=== PATIENT | male | born 1985 | race Caucasian/White ===

== ENCOUNTER 2019-01-03 12:17 | Emergency (ER) | payer MEDICAID, SELFPAY ==
[2019-01-03 12:18] VITALS: BP 138/85; PULSE 114; RESP 17; TEMP 35.6; O2SAT 95; BMI 41.3
--- NOTE | 2019-01-03 12:51 | ED.DCSUM_ITS ---
- ER Visit Summary Date of Service: 01/03/19 Chief Complaint: Hemorrhoidal rectal pain History of Present Illness: The patient is a 33 M known history of prior hemorrhoids. Complaining of pain last 2 days. No bleeding. No fever. Has had prior hemorrhoids drained. Physical Examination: Well-appearing young male. Vital signs are stable afebrile. No distress. HEENT exam unremarkable. Lungs clear to auscultation. Heart regular rhythm no murmur. Abdomen is soft and nontender. Remedies moves all 4. Rectal exam he is too large and one smaller inflamed tender hemorrhoids. Currently there is no bleeding. These will need to be incised and drained. That is what the patient is requesting. I also already instructed him will need to have this followed up and have a formal hemorrhoidectomy. Test Results: Discharge Emergency Department Course and Treatment: Local anesthetic to the hemorrhoid with lidocaine. Incision was made they were drained. Patient tolerated very well. I was able to remove clots from the hemorrhoids. Instructed on warm soaks. Hemorrhoidal cream. Follow-up with general surgery for discussion of formal hemorrhoidectomy. Warm soaks. Treatment Plan: Warm soaks. Hemorrhoid cream. Follow up with general surgery. Disposition: Discharge Impression: Acute rectal pain secondary to inflamed hemorrhoids Incision and drainage by ER of 3 hemorrhoids. This note was generated with [employer] dictation software. It may contain incorrect words, spelling, and punctuation that were not noted in review of the chart prior to signing ED Disposition - Plan for ED Patient: Disposition: Home or Assisted Living Instructions: Thrombosed Hemorrhoids Referrals: Karl Nur MD [STAFF PHYSICIAN] - As soon as possible Timbo Syed MD [STAFF PHYSICIAN] - As soon as possible Additional Instructions: Follow-up with either 1 of the general surgeons that I listed to see which one can get her in and resect and remove these hemorrhoids. Warm soaks. Tylenol Motrin for pain. Hemorrhoid cream.
== END 2019-01-03 14:06 | disposition home or self-care (01) ==
PROVIDERS: Emergency Provider Emergency Medicine; Family Provider Internal Medicine; PCP Internal Medicine
DX: K64.5 Perianal venous thrombosis (principal)
CPT/HCPCS: 46083 ×3; 99283

== ENCOUNTER 2019-01-06 08:02 | Day surgery (SDC) | payer MEDICAID, SELFPAY ==
[2019-01-05 13:49] VITALS: BMI 41.3
--- NOTE | 2019-01-05 14:30 | PCM.HP.BLA ---
Problem List (1) Thrombosed external hemorrhoid Status: Acute History and Physical Date of Admission: 01/05/19 Intake Vital Signs 01/05/19 Body Mass Index (BMI) 41.3 01/05/19 Height 5 ft 7 in 01/05/19 Weight: 283 lb 01/05/19 Body Mass Index (BMI) 44.3 01/05/19 Blood Pressure 127/78 H 01/05/19 Blood Pressure Location Rt brachial 01/05/19 Respiratory Rate 18 01/05/19 Pulse Rate 92 01/05/19 Pulse Source Monitor 01/05/19 Temperature 98.3 F 01/05/19 Temperature Source Oral 01/05/19 Pulse Ox 94 01/05/19 Oxygen Delivery Method room air Intake Visit Reasons: [facility] ER 01/03 FU 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 Is patient in pain?: No Allergies Penicillins Allergy (Verified 01/05/19 13:49) Anaphylaxis Medications Hydrocodone/Acetaminophen [[place] 5-325 Tablet] 1 ea PO 4X/DAY PRN PRN #10 tab 01/03/19 [Rx Confirmed 01/05/19] PFSH Medical History Hemorrhoids (Acute) Surgical History (Updated 01/05/19 @ 13:43 by Ginger Vila) No history of previous surgery (Acute) Family History (Updated 01/05/19 @ 13:47 by Ginger Vila) Mother Arthritis Colon cancer Diabetes Hypertension Hypercholesterolemia Father Diabetes Hypertension Hypercholesterolemia Brother Diabetes Hypercholesterolemia Hypertension Social History (Updated 01/05/19 @ 14:05 by Karl Nur MD) Smoking Status: Never smoker alcohol intake: never substance use type: does not use HPI HPI HPI: AMI HERNANDEZ is a 33 M who presents to the office today for HPI HPI Surgical H&P: Yes HPI: AMI HERNANDEZ is a 33 M who presents to the office today for hemorrhoids. Patient had thrombosed hemorrhoids which were evacuated 2 days ago. This was done in the emergency room. Patient reports that he feels like the hemorrhoids have come back. They are not painful but they are very large. ROS General General: No weight change, appetite, fatigue, colon cancer, breast cancer or weakness HEENT HEENT: No difficulty swallowing, eye injury, eye surgery, swollen glands or hoarseness Endo Endocrine: No thyroid disease, diabetes mellitus, thyroid cancer, Hair loss, heat intolerance or cold intolerance Skin Skin: No rash or changing moles Breast Breast: No left breast lump, right breast lump, nipple discharge, breast pain, abnormal mammogram, abnormal US or breast enlargement Musc Musculoskeletal: No back problems, arthritis, rheumatoid arthritis, gout or joint pain Cardio Cardiovascular: No murmur, pacemaker, heart disease, atrial fibrillation, high blood pressure, heart attack, heart stent, palpitations, shortness of breat with exertion or chest pain Psych Psychiatric: No depression, anxiety or hearing voices Resp Respiratory: No shortness of breath, No sleep apnea, No cough, No COPD, No asthma, No emphysema, No wheezing Gastro Gastrointestinal: No abdominal pain, No nausea or vomiting, No diarrhea, No constipation, No blood in stool, No acid reflux, Yes hemorrhoids, No ulcers, No gallbladder problem, No black,tarry stools Attila Hematologic: No blood thinners, No blood disorders, No bleeding, No anemia, No blood clots Neuro Neurologic: No system reviewed and no additional complaints, except as docu, No as per HPI, No abnormal walking, No abnormal hearing, No abnormal movements, No abnormal speech, No behavioral changes, No burning sensations, No confusion, No seizure-like activity, No unsteadiness, No dizziness, No localized weakness, No frequent falls, No headache(s), No lack of coordination, No loss of vision, No memory loss, No numbness, No other visual disturbances, No radiating pain, No restless legs, No sensory deficit, No fainting, No tingling, No tremor(s), No weakness, No other Exam Const General: cooperative Orientation: alert, oriented x3 Limitations: behavioral limitations Chest Breast Palpation: No nipple discharge Resp Effort & Inspection: normal respiratory effort Auscultation: clear to auscultation bilaterally Cardio Rate: regular rate Rhythm: regular rhythm Heart Sounds: no murmurs GI Inspection: non-distended Palpation: soft, nontender Other: Patient has 2 large thrombosed hemorrhoids on rectal exam Assessment & Plan Problems 1. Thrombosed hemorrhoids K64.5 Plan Patient has 2 large external thrombosed hemorrhoids. Patient had these evacuated and they came back. At this point I believe evacuated and then once more we will just result in the same outcome. I recommend going to the operating room tomorrow and surgically excising these hemorrhoids. I explained this to the patient and his father. I explained the risks of bleeding, infection, injury to the anal canal. I recommended a fleets enema in the morning and n.p.o. after midnight. I also recommended sitz baths and stool softeners after. She understands the risks as well to proceed with surgery. I will bring him to the OR tomorrow for excision of these thrombosed external hemorrhoids. Karl Nur MD Pager: [facility] [address] [place] [address], [address] [place] [address] Office:
[2019-01-06] VITALS (11 sets, daily range): BP systolic 99–136; BP diastolic 47–90; PULSE 80–98; RESP 18–20; TEMP 36.6–37.3; O2SAT 92–98; BMI 41.8
[2019-01-06] MEDS: Bupivacaine Mpf 0.5% 30 ML VIAL (10:55)
--- NOTE | 2019-01-06 11:36 | PCM.DC.REC ---
Discharge Diet: No Restrictions Discharge Activity: Return to Normal Activity, May Not Drive - while you are taking narcotic pain medications. Do not drive, work with heavy equipment or sign legal documents for 24 hours after your surgery. Additional Activity Instructions:: Be aware that pain medications may cause nausea. You should typically eat light foods as you take your pain medications. Pain medications may also cause constipation, if you have difficulty with this please discuss with your doctor. Call your doctor if your incision/area has: Continuous Slow Oozing, Sudden Increased Bleeding, Increased Pain/ Swelling, Increased Redness, Foul Smelling Discharge, Swelling at the incision site Call your doctor if you observe: Fever of 101 or Higher Additional Dressing/Incision Instructions:: Place dibucaine ointment on the perianal area as needed. Sitz baths twice daily and after bowel movements. Allergies/Adverse Reactions: Allergies Penicillins Allergy (Verified 01/05/19 13:49) Anaphylaxis Medications to take at Discharge Hydrocodone/Acetaminophen [[place] 5-325 Tablet] 1 ea PO 4X/DAY PRN PRN #10 tab 01/03/19 Oxycodone HCl/Acetaminophen [Percocet 5/325] 1 - 2 tablet PO Q4H PRN PRN 7 Days #30 tablet 01/06/19 The following prescriptions were given: Oxycodone HCl/Acetaminophen [Percocet 5/325] 1 - 2 tablet PO Q4H PRN PRN 7 Days #30 tablet PRN Reason: Pain Transmission Status: Sent to [facility] Primary Care Physician: Micaela Sanches MD [Primary Care Provider] - Test Results: Test results from this visit will be discussed in further detail at your follow-up appointment, if applicable. Please Follow Up With: Karl Nur MD When: Please call to schedule 2 week follow up appointment. [phone]
--- NOTE | 2019-01-06 11:40 | PCM.OPRPT ---
Problem List (1) Thrombosed external hemorrhoid Status: Acute Report of Operation Date of Procedure: 01/06/19 Pre-Operative Diagnosis: Thrombosed external hemorrhoids Post-Operative Diagnosis: Same Surgery/Procedure Performed:: Evacuation and packing of external hemorrhoids Description of Procedure: Patient was brought to the operating room and general anesthesia was induced. The pain she was then placed in prone jackknife position. Upon inspection the patient had circumferential thrombosing of the anus. The entire anal canal was completely covered with several thrombosed hemorrhoids. I was unable to excise these as this would best circumferential excision and high risk of stenosis. Instead both of these large external hemorrhoids were opened with electrocautery and packed with half-inch iodoform gauze. Dressing was then applied. - Admit VTE Documentation VTE Mechan Device Prophylaxis: SCD's
== END 2019-01-06 14:03 | disposition home or self-care (01) ==
LOC: SDC 08:03 → AC 08:04
PROVIDERS: Family Provider Internal Medicine; PCP Internal Medicine; Referring Provider Surgery; Visit Provider Surgery
PROC: (CPT 46083; principal; 2019-01-06 09:45)
DX: K64.5 Perianal venous thrombosis (principal); Z79.891 Long term (current) use of opiate analgesic
CPT/HCPCS: 00902; 46083 ×2; J7120; J2405

== ENCOUNTER 2019-06-12 17:03 | Emergency (ER) | payer MEDICAID, SELFPAY ==
[2019-01-06 08:37] VITALS: BMI 41.8
[2019-06-12 17:04] VITALS: BP 134/103; PULSE 127; RESP 18; TEMP 36; O2SAT 96; BMI 38.1
--- NOTE | 2019-06-12 17:17 | ED.VIS.GEN ---
History of Present Illness Chief Complaint: Male Pain/Injury Onset: Month(s) - 12 Narrative: Patient presents with some dysuria, he has some vague testicle tenderness bilaterally. This is been ongoing for a year. He denies any abdominal pain any back pain any fever or chills. He denies any kind of discharge. He tells me his testicular pain is currently mild but sometimes it is enough to keep him up at night. He tells me he does get it most days sometimes up to 4 hours a day. Past Medical History - Allergies and Home Meds Allergies/Adverse Reactions: Allergies Penicillins Allergy (Verified 06/12/19 17:03) Anaphylaxis Primary Care Physician: Micaela Sanches MD [Primary Care Provider] - 3-5 Days Past Medical History: None Smoking Status: Never smoker Review of Systems General: Denies: Fever Cardiovascular: Denies: Chest pain Respiratory: Denies: Dyspnea Gastrointestinal: Denies: Abdominal pain Genitourinary: Reports: Dysuria, - - Testicle pain is in HPI Musculoskeletal: Denies: Back pain Skin: Denies: Rash Neurological: Denies: Weakness Hematologic: Denies: Easy bruising Physical Exam Vital Signs/Narrative: Vital Signs Temp Pulse Resp BP Pulse Ox 06/12/19 17:04 96.8 F L 127 H 18 134/103 H 96 General: Well nourished, Well developed Cardiovascular: Regular rate, Regular rhythm Respiratory: No distress, CTA bilaterally Abdomen: Soft, Nontender : - - Patient has a normal testicular exam. Normal testicular lie. He does have bilateral cremasteric reflex. There is minimal tenderness to palpation. There is no erythema or Callard or swelling. Penis is circumcised. It is normal. There is no discharge or tenderness. Back: Nontender. Negative for: CVA tenderness Extremities: Nontender, No edema Skin: Normal color Psychological: Normal affect, Normal Mood Diagnostic/Tx/Re-eval - Medical Decision Making Patient is found to have glucosuria on further examination he does have quite a bit of frequency, I wonder if this is the reason for his symptoms, his blood sugar was elevated on blood work.7 he has not been diagnosed with diabetes before, I will start him on metformin he is to follow-up with PCP, because of the testicular tenderness I will also refer him to . Discharge stable condition ED Disposition - Plan for ED Patient: Disposition: Home or Assisted Living Diagnosis: Diabetes, Testicle pain Instructions: TESTICULAR PAIN, Unclear Cause, Eating Out When You Have Diabetes, What Is Type 2 Diabetes? Prescriptions: metFORMIN (XR) [Glucophage Xr] 500 mg PO DAILY #30 tab Prescription Printed Referrals: Micaela Sanches MD [Primary Care Provider] - 3-5 Days Jeyson Sapp MD [STAFF PHYSICIAN] - 3-5 Days
[2019-06-12 18:25] LABS: Bacteria 0 SEEN /hpf (None Seen); Mucous, Urine 0 SEEN /hpf (<or=2+); Red Blood Cells-Urine 0 SEEN /hpf (0-5); Squamous Epithelial Cells - UA 0 SEEN /hpf (0-5); White Blood Cells 0 SEEN /hpf (0-5)
[2019-06-12 18:27] LABS: Color, Urine Yellow (Yellow); Glucose, Dipstick 1000 mg/dl (Normal); Ketone-Dipstick 5 mg/dl (Negative); Leukocyte Esterase-Dipstick Negative /ul (Negative); Nitrite-Dipstick Negative (Negative); Occult Blood-Urine Negative /ul (Negative); Protein-Dipstick Negative (Negative); Urine Bilirubin Dipstick Negative (Negative); Urine Clarity Clear (Clear); Urine Urobilinogen Normal (Normal)
[2019-06-12 19:11] LABS: Absolute Lymphocyte Count 1.46 X10^3/uL (0.83-4.51); Absolute Neutrophil Count 3.9 X10^3/uL (2.0-7.7); Basophil# 0.02 X10^3/uL; Basophil% 0.3 % (0-1); Eosinophil# 0.07 X10^3/uL; Eosinophils% 1.2 % (0-5); Hematocrit 42.7 % (40-54); Hemoglobin 14.6 g/dL (13.0-16.5); Lymphocyte # 1.46 X10^3/ul (4.0); Lymphocyte % 24.3 % (19-41); Mean Corp Hgb Conc 34.2 g/dL (32-36); Mean Corpuscular Hgb 28.7 pg (27.0-32.0); Mean Corpuscular Volume 83.9 fL (80-94); Mean Platelet Vol. 9.7 fl (6.2-12.0); Monocyte# 0.51 X10^3/uL; Monocyte% 8.5 % (0-10); NRBC Flagged by Analyzer 0 % (0-5); Neutrophil # 3.91 X10^3/uL (2.7-7.7); Neutrophil % 65.2 % (47-70); Platelet Count 264 K/mm3 (150-450); RBC Distribution Width CV 12.7 % (11.6-14.6); RBC Distribution Width SD 38.5 fl (35.1-43.9); Red Blood Count 5.09 M/mm3 (4.6-6.2)
[2019-06-12 19:26] LABS: ALB/GLOB Ratio 1.2 RATIO (0.9-2.4); AST(SGOT) 14 U/L (15-37); Alanine Aminotransfer ALT/SGPT 31 U/L (16-61); Alkaline Phosphatase 57 U/L (45-117); Anion Gap 10 (5-15); BUN 14 mg/dL (7-18); BUN/Creat Ratio 15.1 RATIO (10-20); Chloride 105 mmol/L (98-107); Creatinine, Serum 0.93 mg/dL (0.70-1.30); EST Glomerular Filtration Rate 99 mL/min (>60); Est Glom Filt Rate - Afr Amer 119 mL/min (>60); Estimated Creatinine Clearance 111.92 ml/min; Globulin 3.2 g/dL (2.2-4.2); Glucose 286 mg/dL (74-106); Potassium 3.9 mmol/L (3.5-5.1); Protein, Total 7.2 g/dL (6.4-8.2); Sodium Level 137 mmol/L (136-145)
[2019-06-12 20:01] VITALS: BP 134/75; PULSE 94; RESP 18; O2SAT 96
[2019-06-12 20:05] VITALS: BP 134/75; PULSE 94; RESP 16; O2SAT 96
== END 2019-06-12 20:06 | disposition home or self-care (01) ==
PROVIDERS: Emergency Provider Emergency Medicine; Family Provider Internal Medicine; PCP Internal Medicine
DX: N50.819 Testicular pain, unspecified (principal); E11.9 Type 2 diabetes mellitus without complications; Z79.84 Long term (current) use of oral hypoglycemic drugs
CPT/HCPCS: 36415; 80053; 81001; 85025; 87086; 99282

== ENCOUNTER 2020-05-05 04:36 | Emergency (ER) | payer MEDICAID, SELFPAY ==
[2020-05-05 04:37] VITALS: BP 154/100; PULSE 89; RESP 18; TEMP 36.2; O2SAT 99; BMI 39.7
--- NOTE | 2020-05-05 04:53 | ED.VIS.DENTA ---
History of Present Illness Chief Complaint: Dental Informant: Patient, Family Onset: Yesterday Context: Gradual Onset Timing: Continuous Quality: sore/ache Location: right upper molar Current Severity: Moderate Maximum Severity: Moderate Worsened by: eating/drinking Relieved by: - - hasn't tried anything Associated Symptoms: - - None. No fevers, jaw swelling, vomiting, other facial swelling. Narrative: Patient states that he chipped the affected tooth about a month ago, on a small bone and some chicken he was eating. Started hurting him yesterday and progressively became worse tonight. No analgesics [id number] prior to arrival. No fevers or systemic symptoms. Past Medical History - Allergies and Home Meds Allergies/Adverse Reactions: Allergies Penicillins Allergy (Verified 05/05/20 04:40) Anaphylaxis Primary Care Physician: Micaela Sanches MD [Primary Care Provider] - Past Medical History: None Lives: With Family Smoking Status: Never smoker Review of Systems General: Denies: Chills, Fever, Sweats ENT: Reports: - - Dental pain. No swelling.. Denies: Rhinorrhea, Sore throat Cardiovascular: Denies: Chest pain, Palpitations Respiratory: Denies: Dyspnea, Cough Gastrointestinal: Denies: Nausea, Vomiting Skin: Denies: Rash, Wounds Neurological: Denies: Headache, Weakness Physical Exam Vital Signs/Narrative: Vital Signs Temp Pulse Resp BP Pulse Ox 05/05/20 04:37 97.2 F L 89 18 154/100 H 99 Inital Vital Signs reviewed: Yes General: Well nourished, Well developed, - - Well-appearing, NAD Head: Normocephalic, Atraumatic ENT: Moist mucous membranes, No rhinorrhea Mouth/Throat: Normal inspection lips/gums, Normal oral mucosa, No focal abscess, Normal posterior oropharynx, Focal dental decay - vs. Mccullough 2 fx, focal at anterior aspect of #3, no blood/bleeding, Tenderness on tooth percussion - #3. Negative for: Dental abscess, Trismus Neck: Supple, No lymphadenopathy Respiratory: No distress, - - no stridor Skin: Normal color, No rash, No Trauma Neurological: Alert, Oriented x3, Cranial nerves II-XII grossly intact, Normal Strength, Normal Sensation, Normal Gait Psychological: Normal affect, Normal Mood Diagnostic/Tx/Re-eval - Medical Decision Making Dental Procedures: Cavet temporary sealant placed Placed temporary filling in the affected area. Will place on antibiotics given the possibility of early dental infection although there is no discrete abscess or sign of gingivitis. He is allergic to penicillins we will place him on clindamycin and give him some tramadol until he can see a dentist. ED Disposition - Plan for ED Patient: Disposition: Home or Assisted Living Diagnosis: Odontalgia, Dental caries Instructions: ED CAVITY Dental Prescriptions: Clindamycin [Cleocin] 300 mg PO 4X/DAY #80 cap Prescription Printed traMADol [Ultram] 50 mg PO Q4H PRN PRN 2 Days #10 tab PRN Reason: Pain Prescription Printed Referrals: Micaela Sanches MD [Primary Care Provider] - Dentist,Your [STAFF PHYSICIAN] - As soon as possible
[2020-05-05] MEDS: Naproxen 500 MG Tablet PO (05:03)
[2020-05-05] MEDS: Clindamycin HCl 150 MG Capsule 300 MG PO (05:03)
[2020-05-05] MEDS: traMADol 50 MG Tablet PO (05:03)
[2020-05-05 05:07] VITALS: BP 154/100; PULSE 89; RESP 18
== END 2020-05-05 05:08 | disposition home or self-care (01) ==
PROVIDERS: Emergency Provider Emergency Medicine; PCP Internal Medicine
DX: K02.9 Dental caries, unspecified (principal)
CPT/HCPCS: 64999; 99281; 99283

== ENCOUNTER 2021-02-05 17:43 | Emergency (ER) | payer MEDICAID, SELFPAY ==
[2021-02-05 17:43] VITALS: BP 148/85; PULSE 102; RESP 18; TEMP 35.5; O2SAT 95; BMI 37.0
[2021-02-05 19:35] VITALS: BP 157/101; PULSE 91; RESP 14; O2SAT 97
--- NOTE | 2021-02-05 20:23 | ED.VIS.DENTA ---
HPI History of Present Illness Chief Complaint: Dental Informant: patient and parent Narrative Narrative: Patient presents with dental pain. He has been having this off and on for some months. He is already called the dentist. He has an appointment set for March. The reason he came in today is that he started to get some swelling in the right cheek. He has no nausea vomiting. No fevers or chills. No acute trauma. Nothing really makes the symptoms worse. Putting cold water on his teeth actually made them better. He has not been on antibiotics for some time. No chest pain. No trouble breathing or swallowing. No change in voice. [facility] Medical History (Updated 02/05/21 @ 20:[address] Rafa Lion MD) Hemorrhoids Home Medications clindamycin HCl [Cleocin HCl] 300 mg PO Q6H #40 cap 02/05/21 [Rx Last Taken Unknown] metformin 1,000 mg PO BID 02/05/21 [History Last Taken Unknown] naproxen 500 mg PO BID #20 tab 02/05/21 [Rx Last Taken Unknown] simvastatin 20 mg PO DAILY 02/05/21 [History Last Taken Unknown] Allergy/AdvReac Type Severity Reaction Status Date / Time Penicillins Allergy Anaphylaxis Verified 02/05/21 17:45 Family History Mother Arthritis Colon cancer Diabetes Hypertension Hypercholesterolemia Father Diabetes Hypertension Hypercholesterolemia Brother Diabetes Hypercholesterolemia Hypertension Surgical History history incision and evacuation thrombosed hemorrhoid (~01/06/19) No history of previous surgery Social History (Updated 01/20/19 @ 09:[address] Karl Nur MD) Smoking Status: Never smoker alcohol intake: never substance use type: does not use ROS ROS ED Constitutional Constitutional ED: Denies chills, fever(s) or sweats ENT ENT ED: Reports other Details: Dental pain as above. ; Denies ear pain or rhinorrhea Cardiovascular Cardiovascular: Denies chest pain or palpitations Respiratory/Chest Respiratory/Chest: Denies cough or dyspnea Gastrointestinal Gastrointestinal: Denies nausea or vomiting Musculoskeletal Musculoskeletal: Denies arthralgias or myalgias Integumentary Denies rash Hematologic/Lymphatic Hematologic/Lymphatic: Denies easy bleeding or easy bruising EXAM Physical Exam Const Vital Signs: 02/05/21 17:43 02/05/21 19:35 Temperature 96 F L Temperature Source Temporal Pulse Rate 102 H 91 Respiratory Rate 18 14 Blood Pressure 148/85 H 157/101 H Blood Pressure Mean 106 119 Pulse Ox 95 97 Oxygen Delivery Method Room Air Room Air Positive well nourished and well developed General Appearance ED: well developed HEENT HEENT Narrative: Patient does have a little bit of fullness just above the right upper lip. There is no tenderness. There is no mass. No sign of abscess. I looked at his mouth. He has multiple areas of dental cavities. He has multiple areas that are tender. But I see no abscess. His voice is normal. Motion of tongue is normal. No indication of Jaquan's angina Negative for trauma Eyes Negative for PERRL Neck no lymphadenopathy and supple General: normal visual inspection Lymph Lymphatic: no lymphadenopathy noted Chest Wall inspection of chest normal Resp normal respiratory effort Cardio regular rate and regular rhythm GI non-tender Palpation: soft Neuro oriented x3 Sensorium / Orientation: alert Psych mental status grossly normal Skin no rashes or lesions noted MDM MDM MDM Narrative Medical decision making narrative: Patient has signs of dental infection with suspected apical abscess. He will be started on clindamycin as he has penicillin allergy. I will also give him some Naprosyn. We discussed returning with worsening pain swelling fevers or chills. Discharge Plan Triage Chief Complaint: Dental ED Provider: Rafa Lion Dx/Rx/DC Orders Clinical Impression: Abscess, periapical Instructions: Dental Abscess Prescriptions: New clindamycin HCl [Cleocin HCl] 300 mg capsule 300 mg PO Q6H Qty: 40 RF: 0 naproxen 500 mg tablet 500 mg PO BID Qty: 20 RF: 0 No Action simvastatin 20 mg tablet 20 mg PO DAILY RF: 0 metformin 500 MG tablet extended release 24 hr 1,000 mg PO BID RF: 0 Primary Care Provider: Micaela Sanches Referrals: Micaela Sanches MD [Primary Care Provider] - Activity Restrictions/Additional Instructions: Follow-up with your dentist as soon as possible. Disposition Disposition: Home, Self Care
[2021-02-05] MEDS: Clindamycin HCl 150 MG Capsule 300 MG PO (20:38)
[2021-02-05] MEDS: Naproxen 250 MG Tablet 500 MG PO (20:38)
== END 2021-02-05 20:39 | disposition home or self-care (01) ==
PROVIDERS: Emergency Provider Emergency Medicine; PCP Internal Medicine
DX: K04.7 Periapical abscess without sinus (principal)
CPT/HCPCS: 99283

== ENCOUNTER 2024-04-09 13:53 | Emergency (ER) | payer MEDICAID, SELFPAY ==
[2024-04-09 13:53] VITALS: BP 112/80; PULSE 127; RESP 18; TEMP 36.9; O2SAT 93; BMI 34.2
[2024-04-09 14:14] VITALS: O2SAT 96
--- NOTE | 2024-04-09 14:18 | EX.ED.VIS.UR ---
HPI HPI - URI History of Present Illness Chief Complaint: Cough Informant: patient and parent Onset/Context/Timing Onset: Weeks Context: Gradual Onset Timing: Intermittent Current Severity: Mild Maximum Severity: Mild Associated Symptoms Associated Symptoms: Positive for Productive Cough Narrative Narrative: 38-year-old male history of type 2 diabetes. Multiple family members have had URIs recently. He has had a cough for 1 to 2 weeks. At times he seemed to get better than it returns. He has mostly been nonproductive cough sometimes clear phlegm last night he coughed up discolored sputum. No chest pain. No fever. He is moving his bowels and peeing normally. Prior similar symptoms: No Recent Illness/Hospitalization: No ROS ROS ED ROS Narrative Cough. Constitutional Constitutional ED: Denies chills or fever(s) Eyes Eyes: Denies blurry vision ENT ENT ED: Denies ear pain Cardiovascular Cardiovascular: Denies chest pain Respiratory/Chest Respiratory/Chest: Reports cough Gastrointestinal Gastrointestinal: Denies abdominal pain, constipation, diarrhea or melena Genitourinary Genitourinary ED: Denies hematuria Musculoskeletal Musculoskeletal: Denies arthralgias Integumentary Denies abscess Neurologic Neurologic: Denies headache(s) Psychiatric Psychiatric: Denies anxiety Endocrine Endocrinology: Denies cold intolerance Hematologic/Lymphatic Hematologic/Lymphatic: Denies easy bleeding Allergic/Immunologic Allergic/Immunologic ED: Denies mouth swelling PFSH PFSH Medical History Hemorrhoids Home Medications ?Medication ?Instructions ?Recorded ?Last Taken ?Type clindamycin HCl 300 mg capsule 300 mg PO Q6H #40 caps 02/05/21 Unknown Rx (Cleocin HCl) metformin 500 mg tablet,extended 1,000 mg PO BID 02/05/21 Unknown History release 24 hr naproxen 500 mg tablet 500 mg PO BID #20 tabs 02/05/21 Unknown Rx simvastatin 20 mg tablet 20 mg PO DAILY 02/05/21 Unknown History azithromycin 250 mg tablet 250 mg PO DAILY 4 days #4 tabs 04/09/24 Unknown Rx (Zithromax) Allergy/AdvReac Type Severity Reaction Status Date / Time Penicillins Allergy Anaphylaxis Verified 04/09/24 13:58 Family History Mother Arthritis Colon cancer Diabetes Hypertension Hypercholesterolemia Father Diabetes Hypertension Hypercholesterolemia Brother Diabetes Hypercholesterolemia Hypertension Surgical History history incision and evacuation thrombosed hemorrhoid (~01/06/19) No history of previous surgery Social History Smoking Status: Never smoker alcohol intake: never substance use type: does not use EXAM Physical Exam Narrative Exam Narrative: 38-year-old male sitting in a hallway chair with his mom. There is no beds available for him to be in the room at this time. No acute distress. Vital signs stable he is tachycardic. His pulse ox 93% on room air. He does not look septic or toxic. H EENT exam moist use membranes. Posterior pharynx unremarkable. No trouble swallowing or breathing. I am glass water to drink without difficulty. TMs obscured bilaterally due to wax. Neck nontender. No lymphadenopathy. Lungs clear to auscultation bilaterally. Heart tachycardic rate about 115 no murmur. Chest wall ribs nontender. Abdomen soft nontender. Moving all 4 extremities. Gets up and ambulates difficulty. I did moving in the room to use the light to evaluate him. Calves are nontender without edema. He is awake and alert. No focal motor deficits. Const Vital Signs: 04/09/24 13:53 04/09/24 14:14 Temperature 98.5 F Temperature Source Oral Pulse Rate 127 H Respiratory Rate 18 Respiratory Effort Normal Non-Labored Respiratory Pattern Normal Blood Pressure 112/80 Blood Pressure Mean 90 Pulse Ox 93 Oxygen Delivery Method Room Air Positive well nourished and well developed; Negative for cachectic or contractures General Appearance ED: well developed and NAD; Negative for cachectic, contractures, cyanotic, diaphoretic or pallor Nutritional Appearance: Negative for cachectic HEENT Reports moist mucous membranes HEENT Narrative: No trouble swallowing water. normocephalic and atraumatic Face and Sinus: Negative for sinus tenderness Teeth and Gingiva: Negative for caries Throat: posterior oropharynx normal; Negative for tonsils abnormal or posterior oropharynx abnormal Eyes PERRL and EOMs intact bilaterally General Eye ED: Negative for pale conjunctiva or scleral icterus Neck no lymphadenopathy, supple, no meningeal signs and no JVD General: Negative for anterior neck swelling or lymphadenopathy Resp normal respiratory effort and clear to auscultation bilaterally Effort and Inspection: Negative for retractions Auscultation: Negative for rales, rhonchi, wheezes or diminished lung sounds Cardio S1 normal heart sound, S2 normal heart sound and no murmurs Rate: tachycardic Rhythm: regular rhythm; Negative for abnormal rhythm GI non-tender, non-distended and no masses Inspection: Negative for abdominal distention Auscultation: normoactive bowel sounds Palpation: soft; Negative for tender or guarding Back/Spine no CVA tenderness and normal ROM General Back: Negative for CVA tenderness Cervical Spine: Negative for cervical spine tenderness Thoracic Spine / Upper Back: Negative for thoracic spinal tenderness Lumbar Spine / Lower Back: Negative for lumbar spinal tenderness Sacrum: Negative for tenderness Extremity normal to inspection and full ROM General Extremety ED: Negative for cyanosis or tenderness General Extremity: Negative for cyanosis Neuro oriented x3 and CN's II-XII intact bilaterally Sensorium / Orientation: alert, oriented to person, oriented to place and oriented to time; Negative for orientation impaired, lethargic or stuporous Motor Exam: strength 5/5 throughout Psych mental status grossly normal Appearance: Negative for other Attitude: No agitated Mood & Affect: Negative for depressed Skin General Skin Exam: Negative for jaundice or pallor Lesions: no lesions Rashes: no rashes Trauma: Negative for abrasion MDM MDM MDM Narrative Medical decision making narrative: 38-year-old male 1 to 2-week history of URI symptoms. Chest x-ray be obtained to rule out pneumonia. Repeat exam at 2:48 PM unchanged. I went over the x-ray result with the patient and his family in the rey. He has a left lower lobe pneumonia. To be started on Zithromax Z-[place]. First dose given here. Prescription sent to pharmacy. He is diabetic recently lost his glucometer nurses going to check his blood sugar prior to discharge. History & Record Review Discussion w/independent historian: Patient and Family Additional record(s) reviewed:: Prior inpatient record, Prior outpatient record, Prior ED visit and Prior labs Lab Data Attestation: I reviewed the patient's lab results. Lab results narrative: BGT is 135. Radiography Chest X-Ray - ED: 2 View, Read by ED Physician, Heart, Mediastinum, Bony Structures, Chronic Changes and Left Infiltrate Diagnostic Testing: Chest x-ray, 2 views, AP and lateral, interpreted by myself shows left lower lobe pneumonia seen best on the lateral view. Normal cardiac silhouette. Discharge Plan Triage Chief Complaint: Cough ED Provider: Edis Guthrie Dx/Rx/DC Orders Clinical Impression: Pneumonia, History of diabetes mellitus Instructions: ED Pneumonia (Adult) Prescriptions: New azithromycin [Zithromax] 250 mg tablet 250 mg PO DAILY 4 Days Qty: 4 0RF Rx Instructions: start on day 2 of therapy No Action simvastatin 20 mg tablet 20 mg PO DAILY Patient Comments: Take 1 tablet by mouth daily at bedtime. metformin 500 MG tablet extended release 24 hr 1,000 mg PO BID clindamycin HCl [Cleocin HCl] 300 mg capsule 300 mg PO Q6H Qty: 40 0RF naproxen 500 mg tablet 500 mg PO BID Qty: 20 0RF Primary Care Provider: Micaela Sanches Referrals: Micaela Sanches MD [Primary Care Provider] - 3-5 Days if not improving Activity Restrictions/Additional Instructions: Plenty of fluids and rest. Motrin and/or Tylenol for body aches and/or fever. Take the antibiotic Zithromax every day around lunchtime for the next 4 days starting tomorrow. Follow-up with your doctor if not improving or return if worse. Make sure you check your blood sugars daily. Print Language: Z[place]ian Disposition Disposition: Home, Self Care
--- NOTE | 2024-04-09 14:30 | RAD_ITS ---
STUDY: X-RAY CHEST REASON FOR EXAM: Male, 38 years old. Cough TECHNIQUE: PA and lateral views of the chest. COMPARISON: None. FINDINGS: There is left lower lobe airspace consolidation. There is no demonstrated pleural abnormality. Normal size heart. Normal mediastinum and ana lilia. Normal visualized pulmonary arteries. Normal visualized aortic arch and descending thoracic aorta. Normal visualized thoracic spine. Normal visualized ribs, clavicles, and shoulders. There is no demonstrated abnormality of the visualized soft tissue structures of the upper abdomen. RAD/Chest PA and Lateral IMPRESSION: Left lower lobe pneumonia. Electronically Signed: Tuan Lewis MD at 14:56 EDT ,
[2024-04-09] MEDS: Azithromycin 250 MG Tablet 500 MG PO (14:55)
[2024-04-09 15:06] VITALS: BP 121/79; PULSE 112; RESP 14; TEMP 37.2; O2SAT 92
[2024-04-09 15:06] LABS: Bedside Glucose 134 mg/dL (74-106)
== END 2024-04-09 15:07 | disposition home or self-care (01) ==
PROVIDERS: Emergency Provider Emergency Medicine; PCP Internal Medicine; Visit Provider Emergency Medicine
DX: J18.9 Pneumonia, unspecified organism (principal); E11.9 Type 2 diabetes mellitus without complications; Z88.0 Allergy status to penicillin; Z79.84 Long term (current) use of oral hypoglycemic drugs
CPT/HCPCS: 71046; 82962; 99282